=== PATIENT | male | born 1960 | race Caucasian/White ===

== ENCOUNTER 2016-09-22 14:20 | Day surgery (SDC) | payer OTHER ==
[~2016-09-22] VITALS: Ht 182.9 cm; Wt 95.5 kg
[~2016-09-22 14:20] MED LIST: 0.9% Sodium Chloride 1,000 ML ONE; APIX5TAB PO; Atropine 1 mg/10 mL (Code) Syringe ONE; CHOL500011 PO; FLAX100038 PO; FLC50T PO; LANS15TA3 PO; LIP40 PO; LOPE1TAB13 PO; METO25TA99 PO; MULT1CAP33 PO; Methohexital 10 mg/mL 50 mL Inj ONE; ZINC50TA36 PO
[2016-09-22 15:08] LABS: BASOPHILS % (AUTO) 0.9 % (0-3); EOSINOPHILS % (AUTO) 3.7 % (0-5); MONOCYTES % (AUTO) 11.4 % (4-12); Mean Corpuscular Hemoglobin 30.5 pg (27.0-35.0); Mean Corpuscular Volume 88.1 fL (81-100); NEUTROPHILS % (AUTO) 59.7 % (40-74); Platelet Count 223 bil/L (150-400)
[2016-09-22 15:19] VITALS: BP 121/72; PULSE 106; RESP 22; O2SAT 100
[2016-09-22 15:25] LABS: INR 0.99 ratio
[2016-09-22 16:15] VITALS: BP 115/70; PULSE 69; RESP 22; O2SAT 98
--- NOTE | 2016-09-22 16:28 | PROCED ---
[address] [address] PROCEDURE NOTE PATIENT: WILIAN SERRANO : 1960 MR#: [id number] ADMIT: 09/22/2016 JOB ID: [id number] DATE OF SERVICE: 09/22/2016 PREOPERATIVE DIAGNOSIS(ES): Atrial fibrillation. SURGEON: POSTOPERATIVE DIAGNOSIS(ES): Sinus rhythm. PROCEDURE PERFORMED: Direct current cardioversion. CONTROL PANEL BUILDER: Dimas Vaughn MD, electrophysiology attending ANESTHESIA: Sedation 2 mg of Versed and 40 mg of Brevital were utilized for an appropriate level of sedation. INDICATION: The patient is a pleasant 55-year-old man with a structurally normal heart who has had ablation and comes in for recurrence of atrial fibrillation after confirmation of adequate anticoagulation. A complete discussion was had with him regarding risks and benefits. PROCEDURAL DESCRIPTION: After informed consent, the patient was taken to the procedure suite in a fasting state where defibrillator patches were placed in the anterior and posterior positions. After adequate sedation, a 200 joule biphasic synchronized shock was used for conversion to sinus rhythm. He will be allowed to recover and discharged home for close followup. COMPLICATIONS: None. BLOOD LOSS: None. IMPRESSION: Successful direct current conversion. PLAN: 1. Recovery and discharge from the [facility]. 2. Continue current medication regimen. 3. Followup with me in clinic in 3-4 weeks. ATTENDING STATEMENT: Dimas Vaughn MD, electrophysiology attending, was present for and supervised/performed all aspects of this procedure.
--- NOTE | 2016-09-22 16:35 | NUR ---
[facility] ADMIT/DISCHARGE 55 YR OLD MALE ADMITTED TO [facility] FOR CV TODAY AT 1430. AFIB CONFIRMED ON MONITOR. IV STARTED, LABS SENT, AND CONSENT IS SIGNED. MED REC COMPLETED. DR MORRISON, RT, AND, RN IN ATTENDANCE. PT WAS GIVEN VERSED 2MG IV, BREVITAL 40MG IV, AND WAS CONVERTED TO SR USING 200J. PT REMAINED STABLE POST SEDATION. POST CV EKG WAS OBTAINED. DISCHARGE INSTRUCTIONS, INCLUDING POST SEDATION AND MEDICATIONS, WERE REVIEWED WITH PT AND AND THEY VERBALIZED UNDERSTANDING. HE HAS F/U APPT WITH DR MORRISON ON 10/16/16. NO CHANGES TO MEDICATIONS. PT WAS DISCHARGED AT 1625 IN STABLE CONDITION WITH . Addendum: 09/22/16 at 1642 by ABDIRAHMAN MENA RN SEE PAPER FLOW FOR DETAILS OF PROCEDURE
[2016-10-20] MEDS ORDERED: FLEC100T2 PO (18:11)
[2017-01-15] MEDS ORDERED: FLAX100038 PO (16:42)
[2017-01-15] MEDS ORDERED: CHOL500011 PO (16:42)
== END 2016-09-22 23:59 | disposition home or self-care (01) ==
LOC: SOUO 14:20 → EDSTATUS 14:20 → SOUO 23:59
PROVIDERS: ATTEND Internal Medicine Cardiovascular Disease
DX: I48.0 Paroxysmal atrial fibrillation (principal); I10 Essential (primary) hypertension; E78.5 Hyperlipidemia, unspecified; K21.9 Gastro-esophageal reflux disease without esophagitis; Z79.01 Long term (current) use of anticoagulants; Z79.899 Other long term (current) drug therapy; Z79.82 Long term (current) use of aspirin
CPT/HCPCS: 36415; 80048; 85025; 85610; 92960; 93005; J2250; J7030

== ENCOUNTER 2016-10-23 00:45 | Day surgery (SDC) | payer OTHER ==
[~2016-10-23] VITALS: Ht 182.9 cm; Wt 94.5 kg
[~2016-10-23 00:45] MED LIST changes: -0.9% Sodium Chloride 1,000 ML ONE; -Atropine 1 mg/10 mL (Code) Syringe ONE; -FLC50T PO; +FLEC100T2 PO; -LOPE1TAB13 PO; -Methohexital 10 mg/mL 50 mL Inj ONE
[2016-10-23] MEDS ORDERED: 0.9% Sodium Chloride 250 ML ONE (15:21)
[2016-10-23] MEDS ORDERED: Methohexital 10 mg/mL 50 mL Inj ONE (15:22)
[2016-10-23] MEDS ORDERED: Atropine 1 mg/10 mL (Code) Syringe ONE (15:24)
[2016-10-23 15:44] VITALS: BP 139/85; PULSE 93; RESP 15; O2SAT 95
[2016-10-23 15:56] LABS: BASOPHILS % (AUTO) 0 % (0-3); EOSINOPHILS % (AUTO) 4 % (0-5); MONOCYTES % (AUTO) 11 % (4-12); Mean Corpuscular Volume 87 fL (81-100); NEUTROPHILS % (AUTO) 60 % (40-74); Platelet Count 209 bil/L (150-400)
--- NOTE | 2016-10-23 16:47 | NUR ---
Assisted with cardioversion no respiratory issues.
--- NOTE | 2016-10-23 17:25 | NUR ---
[facility] CARDIOVERSION 55 YR OLD MALE ADMITTED TO [facility] FOR CARDIOVERSION TODAY AT 1500. PT IS ACCOMPANIED BY .IV STARTED, LABS SENT, AND MEDICATIONS REVIEWED. CONSENT IS SIGNED AND CONFIRMED. SEE PROCEDURAL FLOW SHEET FOR DETAILS OF PROCEDURE. PT WAS GIVEN VERSED 2MG IV AND BREVITAL 70MG IV FOR SEDATION. HE WAS CONVERTED TO SR USING 200J WITH DR MORRISON AND RT IN ATTENDANCE. POST SEDATION PT REMAINED IN SR AND EKG WAS OBTAINED. PT RECOVERED FROM SEDATION AND DISCHARGE INSTRUCTIONS INCLUDING F/U, MEDICATIONS, AND POST SEDATION WERE REVIEWED WITH PT AND VERBALIZING UNDERSTANDING. HE WAS DISCHARGED IN STABLE CONDITION AT 1705 WITH .
--- NOTE | 2016-10-24 01:55 | PROCED ---
[address] [address] PROCEDURE NOTE PATIENT: WILIAN SERRANO : 1960 MR#: [id number] ADMIT: 10/23/2016 JOB ID: [id number] DATE OF SERVICE: 10/23/2016 PREOPERATIVE DIAGNOSIS(ES): Atrial fibrillation. POSTOPERATIVE DIAGNOSIS(ES): Sinus rhythm. PROCEDURE PERFORMED: SURGEON: Dimas Vaughn MD SEDATION: 2 mg of Versed and a total of 70 mg of Brevital were utilized for appropriate level of sedation. INDICATION: The patient is a pleasant, 55-year-old man, status post multiple ablations and cardioversion, who comes in for symptomatic atrial fibrillation, having adequate anticoagulation. After discussion of risks and benefits of cardioversion, he opted to proceed. PROCEDURAL DESCRIPTION: After informed signed consent, the patient was taken to the procedure suite in a fasting state where defibrillator patches were placed in the anterior and posterior positions. After adequate sedation, a 200 joule biphasic synchronized shock was used to convert him to sinus rhythm. He will be allowed to recover and discharged home for close followup. COMPLICATIONS: None. ESTIMATED BLOOD LOSS: None. IMPRESSION: Successful direct current cardioversion. PLAN: 1. Continue current medication regimen. 2. Follow up with me or Seferino Padgett in the clinic in 3-4 weeks. 3. With the next recurrence of atrial fibrillation, we will switch gears with antiarrhythmics prior to another cardioversion. ATTENDING STATEMENT: Dimas Vaughn MD, electrophysiology attending, was present for and supervised, performed all aspects of this procedure.
[2017-01-15] MEDS ORDERED: FLAX100038 PO (16:42)
[2017-01-15] MEDS ORDERED: CHOL500011 PO (16:42)
== END 2016-10-23 23:59 | disposition home or self-care (01) ==
LOC: SOUO 00:45
PROVIDERS: ATTEND Internal Medicine Cardiovascular Disease
DX: I48.0 Paroxysmal atrial fibrillation (principal); Z79.01 Long term (current) use of anticoagulants; Z79.899 Other long term (current) drug therapy; I10 Essential (primary) hypertension; E78.5 Hyperlipidemia, unspecified
CPT/HCPCS: 80048; 85025; 92960; 93005; 94799; 99151; J2250; J7050

== ENCOUNTER 2017-01-16 06:52 | Day surgery (SDC) | payer OTHER ==
[~2017-01-16] VITALS: Ht 182.9 cm; Wt 100.5 kg
[2017-01-16 07:19] VITALS: BP 101/78; PULSE 90; RESP 18; O2SAT 97
[2017-01-16 07:19] LABS: BASOPHILS % (AUTO) 0.5 % (0-3); MONOCYTES % (AUTO) 10.8 % (4-12); Mean Corpuscular Volume 88.4 fL (81-100); NEUTROPHILS % (AUTO) 58.9 % (40-74); Platelet Count 187 bil/L (150-400)
[2017-01-16] MEDS ORDERED: Methohexital 10 mg/mL 50 mL Inj ONE (07:30)
[2017-01-16] MEDS ORDERED: Atropine 1 mg/10 mL (Code) Syringe ONE (07:31)
[2017-01-16] MEDS ORDERED: Flumazenil 0.1 mg/mL 5 mL Inj IV ONE (07:31)
[2017-01-16 08:45] VITALS: BP 116/73; PULSE 66; RESP 13; O2SAT 97
[2017-01-16 08:50] VITALS: BP 105/74; PULSE 65; RESP 14; O2SAT 97
[2017-01-16 09:00] VITALS: BP 98/71; PULSE 62; RESP 15; O2SAT 97
[2017-01-16 09:10] VITALS: BP 98/73; PULSE 63; RESP 15; O2SAT 98
--- NOTE | 2017-01-16 09:10 | PROCED ---
[address] [address] PROCEDURE NOTE PATIENT: WILIAN SERRANO : 1960 MR#: [id number] ADMIT: 01/16/2017 JOB ID: [id number] DATE OF SERVICE: 01/16/2017 PREOPERATIVE DIAGNOSIS(ES): Atrial fibrillation. POSTOPERATIVE DIAGNOSIS(ES): Sinus rhythm. SURGEON: Dimas Vaughn MD PROCEDURE PERFORMED: Direct current cardioversion. ANESTHESIA: Versed 2 mg and 70 mg of Brevital were utilized for appropriate level of sedation. INDICATION: The patient is a 56-year-old man with previous atrial fibrillation ablation who comes in for symptomatic atrial fibrillation and after confirmation of adequate anticoagulation and a discussion of risks and benefits of a direct current cardioversion. PROCEDURAL DESCRIPTION: Following informed signed consent, the patient was taken to the procedure suite in a fasting state where defibrillator patches were placed in the anterior and posterior positions. After adequate sedation, a 200 joule biphasic synchronized shock was used to convert him to a sinus rhythm. He will be allowed to recover and discharged home for later followup. COMPLICATIONS: None. ESTIMATED BLOOD LOSS: None. IMPRESSION: Successful direct current cardioversion. PLAN: 1. Recovery and discharge from the [facility]. 2. Increase flecainide to 150 mg twice daily. Continue beta blockade and anticoagulation. 3. EKG in 1 week. 4. Follow up with Seferino Padgett PA-C, in 4 weeks. 5. With recurrence of atrial fibrillation we will proceed with sotalol loading. ATTENDING STATEMENT: Dimas Vaughn MD, electrophysiology attending, was present for and performed all aspects of this procedure.
--- NOTE | 2017-01-16 09:19 | NUR ---
discharge instructions reviewed with patient and spouse. He is discharged ambulatory.
--- NOTE | 2017-01-16 10:21 | NUR ---
0830- Called to pt. room for cardioversion. Pt. tolerated procedure well. Responding appropriately after procedure. EKG obtained.
== END 2017-01-16 23:59 | disposition home or self-care (01) ==
LOC: EDSTATUS 06:52 → SOUO 06:52
PROVIDERS: ATTEND Internal Medicine Cardiovascular Disease
DX: I48.0 Paroxysmal atrial fibrillation (principal); Z79.01 Long term (current) use of anticoagulants; Z98.890 Other specified postprocedural states; I10 Essential (primary) hypertension; K21.9 Gastro-esophageal reflux disease without esophagitis; E78.5 Hyperlipidemia, unspecified; Z85.038 Personal history of other malignant neoplasm of large intestine; Z79.899 Other long term (current) drug therapy
CPT/HCPCS: 36415; 80048; 85025; 85610; 92960; 93005; 94799; 99152; J2250

== ENCOUNTER → 2017-02-22 | Day surgery (SDC) | payer OTHER ==
--- NOTE | 2017-02-19 15:39 | PCM.ANEPRE ---
Anesthesia Pre-Op Review Reason for Review: Recent Cardioversion Additional Comments 56 yo M scheduled for left ESWL. Cardioversion 1 month ago for A.Fib. Presumed to be in NSR maintained on flecanide. Referred for JOSE sleep study, not yet completed. Recommend JOSE precautions. DOS EKG to evaluate present rhythm. Chart Reviewed by: Jesus Marie MD, MD Feb 19, 2017 15:39
[2017-02-22] VITALS (8 sets, daily range): BP systolic 104–127; BP diastolic 53–87; PULSE 52–66; RESP 12–16; O2SAT 98–100
[~2017-02-22] VITALS: Ht 182.9 cm; Wt 96.2 kg
[~2017-02-22] MED LIST changes: +Acetaminophen IV 1,000 MG in IV Premix 1 EACH IV ONE; +Atropine 0.4 mg/mL Inj IVPUSH PRN; +Bupivacaine Liposome 1.3% 20 mL Inj INFILTRATE SCH; -CHOL500011 PO; +Dexamethasone 4 mg/mL Inj IVPUSH PRN; +Dexamethasone 4 mg/mL Inj ONE; +EPHEDrine Sulfate 50 mg/mL Inj IVPUSH PRN; +Furosemide 10 mg/mL 2 mL Inj IV ONE; +HYDROmorphone 1 mg/mL Inj IVPUSH PRN; +Labetalol 5 mg/mL 4 mL Inj IV PRN; +Lactated Ringer's 1,000 ML IV SCH; +Lactated Ringer's 500 ML IV PRN; +MetoCLOpramide 5 mg/mL 2 mL Inj IVPUSH PRN; +Ondansetron 2 mg/mL 2 mL Inj IVPUSH PRN; +Ondansetron 2 mg/mL 2 mL Inj ONE; +Phenylephrine 10,000 mCg/mL Inj IVPUSH PRN; +TAMS0.4C98 PO; +fentaNYL-PF 50 mCg/mL 2 mL Inj IVPUSH PRN; +fentaNYL-PF 50 mCg/mL 2 mL Inj ONE; +tamsulosin
--- NOTE | 2017-02-22 06:42 | PCM.HPANE ---
Patient Data Surgeon Admitting Provider: Attending Provider:Julieta Wheeler MD Primary Care Physician:Adarsh Other Provider:Johnnie Smith Anesthesia Reason for Visit Left Kidney Stone Ht/WT & BMI Height (Feet): 6 Height (Inches): 0 Weight (Kilograms): 99.3 Body Mass Index 29.00 Allergies Coded Allergies: Penicillins (Verified Allergy, Severe, RASH, 10/23/16) ezetimibe (Verified Allergy, Severe, Rash, 10/23/16) SWELLING OF FACE simvastatin (Verified Allergy, Severe, Rash, 10/23/16) SWELLING OF FACE rosuvastatin calcium (Verified Adverse Reaction, Severe, ITCHING, 10/23/16) Uncoded Allergies: VYTORIN (Allergy, Intermediate, PUFFINESS, RASH, 03/20/13) Past Anesthesia History Anesthesia History: Denies:: Abnormal Airway, Anesthesia Reactions, Difficult Intubation, Fam Anesthesia Reaction, Fam Malignant Hypertherm, Malignant Hyperthermia Diabetes History Hx Diabetes?: No MRSA MRSA: No Medications Blood Thinner: Aspirin Last Dose Blood Thinner: Feb 17, 2017 Home Meds Incl Beta Eduin: Yes (Metoprolol) Reported Medications Tamsulosin (Flomax)0.4 Mg Capsule0.4 Mg PO DAILY Ref 0 02/19/17 [tamsulosin] No Conflict Check 02/19/17 Flaxseed Oil (Tad-3 Flaxseed Oil)1,000 Mg Capsule1,000 Mg PO DAILY 01/15/17 Flecainide Acetate 100 Mg [id number] Mg PO BID 10/20/16 Zinc 50 Mg Mmurty93 Mg PO DAILY 07/04/16 Lansoprazole ODT (Prevacid ODT)15 Mg Umsxqx44 Mg PO daily/prn Ref 0 07/04/16 Multivitamin (Multivitamins)1 Each Capsule1 Each PO DAILY 07/04/16 Metoprolol Succinate ER 25 Mg Tab.er.24h12.5 Mg PO BID Ref 0 07/04/16 Atorvastatin (Lipitor)40 Mg Idfhex31 Mg PO DAILY Ref 0 07/04/16 Apixaban (Eliquis)5 Mg Tablet5 Mg PO BID 07/04/16 History History of ENT Problems?: Yes HEENT History: Denies:: Abnormal Airway Cataracts Difficult Intubation Dysphagia Glaucoma Hearing Problem Sinus Problem TMJ Denture Type: None Retainer/Senior Unix Administrator Teeth Condition: Within Normal Limits Hx of Heart Problems?: Yes Cardiovascular History: Positive for:: Chest Pain (related to A fib) Irregular Heartbeat (A fib) Denies:: AICD Abdominal Aortic Aneurism Atrial Fibrillation Cardiac Surgery Congestive Heart Failure Coronary Artery Disease Edema Heart Murmur Hypertension Pacemaker Peripheral Vascular Rheumatic Fever Thrombophlebitis Valvular Heart Disease Other Cardiac History: A fib cardioversion december 2016 Hx of Respiratory Problem?: No Respiratory History: Positive for:: Asthma (states told he had it as child) Denies:: COPD Chest Surgery Dyspnea Emphysema Hemoptysis Pneumonia Tuberculosis Use of C-PAP Machine Other Resp Pertinent History: borderline awaiting further testing Hx Neurologic Problems?: No Neurological History: Denies:: Alzheimer's Disease CVA Dementia Dizziness Headaches Parkinson's Disease Seizures Hx of GI Problems?: No Hx of Problems?: Yes Genitourinary History: Positive for:: Kidney Stones (reason for surgery) Denies:: HX of Hemodialysis Urinary Tract Infection HX of Peritoneal Dialysis: No Male Hx: Denies:: Prostate Problems Scrotal Mass Testicular Surgery Skin History: Denies:: History Skin Disorders? Pressure Ulcers Hx Musculoskeletal Problems?: No Musculoskeletal History: Positive for:: Musculoskeletal Trauma (S/P LT SHOULDER RPR) Denies:: Back Injury Joint Replacement Hx of Psycho/Social Problems?: No Psycho Social History: Positive for:: Anxiety (regarding today's procedure) Denies:: Bipolar Disorder Hx Depression Suicide Attempt Hx Surgeries?: Yes (Colectomy) Hx Any Other Health Problems?: Yes Other History: Positive for:: Cancer (colon ca with resection 2012) Hospitalization (Jun, secondary to oblation for A fib) Denies:: Endocrine Disease Thyroid Disease History Blood Transfusions: Positive for:: Accept Blood Products? Denies:: Blood Transfuse Reaction Blood Transfusions Hx Diabetes: No Hx Alcohol Use: YesAlcoholic Drinks Per Day: 2 glasses a Red wine 4-5 times a weekHx Substance Use: Yes (Marijuana etible now and then) Smoking Status: Never Smoker Have You Smoked inLast 12 mo: No Stop/Bang S-Snoring: Do You Snore Loudly: Yes T-Tired: feel tired, fatigued: No O-Obsered: Observed not breath: No P-Blood Pressure: treated: No B- Body Mass Index > 35 kg/m2: No A- Age over 50: Yes N- Neck Large Circumference: Yes G- Gender Male: Yes JOSE Total Score: 4 JOSE Risk Assessment: High Risk, =/>3 Yes JOSE Category 4 OutPt Procedure: Yes Risk Assessment Category Category 1A: Patient has history of documented sleep apnea, and HAS NOT received any narcotic, sedative or anesthesia administration during this stay. Category 1B: Patient has history of documented sleep apnea, and HAS received any narcotic , sedative or anesthesia administration during this stay Category 2: Patient has SUSPECTED Obstructive Sleep Apnea, and HAS received any narcotic , sedative or anesthesia administration during this stay. Category 3: Patient has SUSPECTED Obstructive Sleep Apnea and HAS NOT received narcotic, sedative or anesthesia administration during this stay. Category 4: Outpatient in Procedural Areas with known sleep apnea or who screen positive for High Risk via the STOP/BANG questionnaire. Exam Exam General Appearance: Alert, Oriented X3, Cooperative, No Acute Distress HEENT/AIRWAY: MP 2 Lungs: Clear to Auscultation, Normal Air Movement Heart: Exam Unremarkable, Regular Rate/Rhythm, No Murmurs/Rubs/Gallops Plan Impression Patient chart reviewed, patient interviewed and anesthestic plan with risks, benefits, and alternatives discussed, and informed consent obtained. NPO per Anesth. Guidelines: Yes ASA Physical Status: ASA3 Severe Disease Anesthetic Plan: GA Bene/Risks/Altern/Consents: Yes HP Complete Prior to Induction: Yes Other hx afib ablation, 2 cardioversons since. colectomy poss leakage. Mariama Solis MD Feb 22, 2017 06:42
[2017-02-22] MEDS: Lactated Ringer's 1,000 ML IV SCH ×2 (09:51→12:33)
--- NOTE | 2017-02-22 14:14 | PCM.ANEP1 ---
Post Anesthesia PACU Phase 1 Assessment Vital Signs Vital Signs Date Time Temp Pulse Resp B/P Pulse Ox O2 Delivery O2 Flow Rate FiO2 02/22/17 14:05 36.6 56 13 108/65 99 Room Air 02/22/17 14:00 36.5 52 12 113/62 100 Room Air 02/22/17 13:50 55 12 104/53 100 Room Air 02/22/17 13:45 36.5 60 13 115/61 100 Simple Mask 7 02/22/17 13:40 58 13 124/70 100 Simple Mask 7 02/22/17 13:35 36.2 125/74 02/22/17 10:09 36.2 58 16 127/79 98 Room Air Anesthetic Administered: GA Level of Alertness: Awake, talking VALENCIA's with Equal Strength: Yes Pain: No Nausea or Vomiting: No CV Function & Hydration Stable: Yes Airway Device: Oxygen Delivery: Simple Mask Lungs: Clear to Auscultation, Normal Air Movement PACU Phase 2 Assessment Patient Instructions Provided: N/A Mariama Solis MD Feb 22, 2017 14:14
--- NOTE | 2017-02-22 16:28 | OP ---
[address] [address] OPERATIVE REPORT PATIENT: WILIAN SERRANO : 1960 MR#: [id number] ADMIT: 02/22/2017 JOB ID: [id number] DATE OF SURGERY: 02/22/2017 SURGEON: Julieta Wheeler MD PREOPERATIVE DIAGNOSIS(ES): 1. Multiple left renal calculi. 2. History of recurrent left renal colic and recent passage of a small left ureteral stone. POSTOPERATIVE DIAGNOSIS(ES): 1. Multiple left renal calculi. 2. History of recurrent left renal colic and recent passage of a small left ureteral stone. OPERATION PERFORMED: Left extracorporeal shock wave lithotripsy (maximal power of 5.0 x2500 shocks). ANESTHESIOLOGIST: Mariama Solis MD ANESTHESIA: General. DESCRIPTION OF PROCEDURE: The patient was positioned supine on the lithotripsy gurney and the above-described stone was localized in the X, Y and Z plane. Lithotripsy was then commenced at minimal power level and gradually increased to maximum power level. The stone and its fragments were relocalized numerous times throughout the case using C-arm radiography. The procedure was then terminated. The patient was awakened, transferred to the gurney and transferred to the recovery area awake in stable condition. The patient tolerated the procedure well.
--- NOTE | 2017-02-22 18:49 | DRSVH ---
PROCEDURE: X-RAY KUB ([id number]) INDICATIONS: LEFT KIDNEY STONE TECHNIQUE: One view of the abdomen acquired. COMPARISON: [facility], CT, CT CHEST ABD PELVIS W CON, 01/08/2017, 9:52. [facility], CR, XR KUB, 01/23/2017, 13:21. FINDINGS: Surgical changes and devices: None. Bowel: Bowel gas pattern is normal. Soft tissues: Several small calcifications again seen projected over the lower pole of the left kidne y largest measuring roughly 4 mm. Bones: No suspicious bony lesions. IMPRESSION: Several small left inferior pole calcifications similar to prior exam. Dictated by: Eloy NETTLES Interpreted: Eloisa Zhang MD on 02/22/2017 at 11:16 Approved by: Eloisa Zhang M.D. on 02/22/2017 at 18:48
== END | disposition home or self-care (01) ==
LOC: SAS 09:27
PROVIDERS: ATTEND Specialist
DX: N20.0 Calculus of kidney (principal); I10 Essential (primary) hypertension; I48.0 Paroxysmal atrial fibrillation; E78.5 Hyperlipidemia, unspecified; F12.90 Cannabis use, unspecified, uncomplicated; Z85.038 Personal history of other malignant neoplasm of large intestine; Z85.89 Personal history of malignant neoplasm of other organs and systems
CPT/HCPCS: 50590; 74000; 93005; J1100; J1940; J2250; J2405; J3010; J7120

== ENCOUNTER 2017-04-09 08:04 | Inpatient (IN) | payer OTHER ==
[~2017-04-09] VITALS: Ht 182.9 cm; Wt 97.4 kg
[2017-04-09] VITALS (7 sets, daily range): BP systolic 114–138; BP diastolic 69–88; PULSE 49–71; RESP 18–22; O2SAT 95–99
[~2017-04-09 08:04] MED LIST changes: -Acetaminophen IV 1,000 MG in IV Premix 1 EACH IV ONE; -Atropine 0.4 mg/mL Inj IVPUSH PRN; -Bupivacaine Liposome 1.3% 20 mL Inj INFILTRATE SCH; -Dexamethasone 4 mg/mL Inj IVPUSH PRN; -Dexamethasone 4 mg/mL Inj ONE; -EPHEDrine Sulfate 50 mg/mL Inj IVPUSH PRN; -Furosemide 10 mg/mL 2 mL Inj IV ONE; -HYDROmorphone 1 mg/mL Inj IVPUSH PRN; -Labetalol 5 mg/mL 4 mL Inj IV PRN; -Lactated Ringer's 1,000 ML IV SCH; -Lactated Ringer's 500 ML IV PRN; -MetoCLOpramide 5 mg/mL 2 mL Inj IVPUSH PRN; -Ondansetron 2 mg/mL 2 mL Inj IVPUSH PRN; -Ondansetron 2 mg/mL 2 mL Inj ONE; -Phenylephrine 10,000 mCg/mL Inj IVPUSH PRN; -fentaNYL-PF 50 mCg/mL 2 mL Inj IVPUSH PRN; -fentaNYL-PF 50 mCg/mL 2 mL Inj ONE
[2017-04-09] MEDS ORDERED: Polyethylene Glycol (PEG) 17 Gm Powder PO PRN (08:10)
[2017-04-09] MEDS ORDERED: Alum-Mag Hydrox-Simeth 30 mL Suspension PO PRN (08:10)
[2017-04-09 09:22] LABS: Magnesium 2.2 mg/dL (1.6-2.6)
[2017-04-09] MEDS ORDERED: LOPE-147 PO (11:19)
[2017-04-09] MEDS: Pantoprazole 20 mg ER24 Tablet PO SCH (12:53)
--- NOTE | 2017-04-09 18:35 | NUR ---
[facility] Cardiac:Pt denies CP, Tele: upper and mid 50s most of shift, down to mid 40s, Dr Johana lu, AM Metoprolol DC'd. OK to given 2029 sotalol. Resp: Pt denies SOB, SPO2 mid 90s on RA. GI/: denies n/v/d, has 2-4 BMs per day following complete colectomy in 2012, takes imodium BID scheduled. Neuro: A&Ox3, VALENCIA, independent in room.
[2017-04-10] VITALS (8 sets, daily range): BP systolic 105–118; BP diastolic 70–77; PULSE 48–62; RESP 16–18; O2SAT 95–98
--- NOTE | 2017-04-10 05:01 | NUR ---
Cardiac: Tele Sbrady 50s. Dr. Oro contacted prior to HS Sotalol dose and made aware of tele. MD states its okay to administer Sotalol. EKG post Sotalol dose QTC WNL. Tele Sbrady 40-50s when sleeping. pt asymptomatic- denies any light headed or dizziness. Care on going.
--- NOTE | 2017-04-10 08:29 | NUR ---
Social Work: Screen D/A: Per EMR review, pt is a 56 year old male admitted for sotalol loading. The pt is [employer] Out of [employer] insurance. PCP is not listed. NOK is Antonio Zafar, . Advanced directives have not been completed. Copies provided to the patient. Readmit score not entered at this time. Pt lives on [address] with his . Pt is I with ADLs at baseline, is ambulating I in his room and works as a sales-person. No social work needs or barriers for discharge identified. Cardiology is leading and following pt's care. P: Anticipate pt will discharge home with his once medically stable; TROUBLE LOCATER to continue to follow to assess for unmet discharge needs. SHERLYN Contreras
[2017-04-10] MEDS ORDERED: MeTOProlol XL 25 mg ER24 Tablet PO SCH (08:30)
[2017-04-10] MEDS: Pantoprazole 20 mg ER24 Tablet PO SCH (09:28)
--- NOTE | 2017-04-10 11:56 | HP ---
[address] [address] HISTORY AND PHYSICAL PATIENT: WILIAN SERRANO : 1960 MR#: [id number] ADMIT: 04/09/2017 JOB ID: [id number] DATE: 04/09/2017 REASON FOR ADMISSION: To change antiarrhythmic therapy for atrial fibrillation from flecainide to sotalol. CHIEF COMPLAINT: Episodic palpitations and weakness. HISTORY OF PRESENT ILLNESS: The patient is a pleasant 56-year-old man with a structurally normal heart who has been quite troubled with paroxysmal and persistent atrial fibrillation for a number of years now. He has had previous ablation procedures and been cardioverted many times. His flecainide dose had been stepped up and was at 150 mg b.i.d. and he was tolerating it well without side effects. However, he still has paroxysms of atrial fibrillation and most often they are persistent and require cardioversion. PAST MEDICAL HISTORY: 1. Paroxysmal atrial fibrillation, sometimes persistent. 2. Hyperlipidemia. 3. History of colon cancer status post resection of the colon. 4. Hypertension. 5. Kidney stones. MEDICATION ALLERGIES/INTOLERANCES: 1. PENICILLINS. 2. SIMVASTATIN. 3. ROSUVASTATIN. 4. ZETIA. REVIEW OF SYSTEMS: Neuro: No dizziness. Respiratory: No dyspnea. Eyes: No visual changes. Skin: No rashes. Constitutional: No recent weight gain or weight loss. Musculoskeletal: No weakness. Endocrine: No polydipsia. : No hematuria. Cardiac: Tachycardia, palpitations from atrial fibrillation but no chest pain. Heme: No bleeding. GI: No blood in stool but he has diarrhea from the colon resection. Psych: Negative anxiety. PHYSICAL EXAMINATION: Vital signs: BP 134/79, pulse regular at 50, respirations 20 per minute. He is afebrile and pulse oximetry 99% on room air. The patient is standing comfortably in no distress. He is not short of breath and has no discomfort. Head is normocephalic. Eyes: With normal pupils and reaction to light. Neck: No JVD. Carotid pulses are equal and no bruits. Chest exam: Breath sounds full and clear in all lopez. Heart is regular and without murmurs. Abdomen is soft and nontender, bowel sounds present. Peripheries are without cyanosis or edema and peripheral pulses are intact. LAB DATA: Serum chemistry is all normal including potassium 4.4, creatinine 0.79 and magnesium 2.2. ECG shows sinus bradycardia at 56. AZ interval 150 msec, QT 430 and QTc 416 msec. There is incomplete right bundle-branch block. ASSESSMENT: Patient with history of paroxysmal and persistent atrial fibrillation with previous ablation procedures and multiple cardioversions. Flecainide has been ineffective and so it was stopped one week ago. PLAN: To start sotalol at 80 mg b.i.d. and monitor the QT interval 2 hours after each dose. He will also be on continuous lunchroom monitor looking for arrhythmias. If the QT interval is stable, then we may increase the sotalol dose to 120 mg b.i.d.
[2017-04-10] MEDS ORDERED: METO25TA3 PO (12:48)
[2017-04-10] MEDS ORDERED: FLEC150T PO (12:48)
--- NOTE | 2017-04-10 13:09 | PROG NOTE ---
[address] [address] PROGRESS NOTE PATIENT: WILIAN SERRANO : 1960 MR#: [id number] ADMIT: 04/09/2017 JOB ID: [id number] DATE: 04/10/2017 CHIEF COMPLAINT: No complaints at present. SUBJECTIVE: The patient is a pleasant 56-year-old man who has been plagued with paroxysmal atrial fibrillation for quite a few years despite several prior ablation procedures and multiple cardioversions. We had him stop flecainide a week ago and started sotalol yesterday for antiarrhythmic therapy of atrial fibrillation. At present he feels he is tolerating the medication very well and has no perceptible side effects. He is not nauseated, dizzy or dyspneic. OBJECTIVE: Vital signs today are pulse 50 BPM, BP 118/17, pulse oximetry 97% on room air. His EKG after the third dose of sotalol 80 mg shows sinus rhythm at 70 BPM with a QTc of 424 msec. His baseline QTc was 422 msec. He is alert and oriented, and ambulatory without difficulty. His physical examination is unchanged from yesterday. ASSESSMENT: The patient is starting sotalol without difficulty. He has so for maintained sinus rhythm and having no side effects from the medication. Metoprolol was stopped to allow the sinus rate to increase. PLAN: Continue same dose of sotalol for two more doses with 12 lead ECGs recorded after each dose to monitor for the QT interval and remain on telemetry monitoring to look for arrhythmias both atrial and ventricular.
--- NOTE | 2017-04-10 17:13 | NUR ---
Sotalol/Activity Cardiac: Pt denies CP. Tele: SR itz 48-55. Sotalol continues, Dr Vaughn aware of itz HR. Resp: Pt denies SOB, SPO2 mid 90s on RA. GI/: denies n/v/d, has 2-4 BMs per day following complete colectomy in 2012, takes imodium BID scheduled. Neuro: A&Ox3, VALENCIA, independent in room, walking in halls ad nel.
[2017-04-11 03:28] VITALS: BP 99/61; PULSE 48; RESP 16; O2SAT 97
--- NOTE | 2017-04-11 04:46 | NUR ---
Sotalol HS Sotalol dose given at approx. 2044 with follow-up EKG ordered for 2244. Latest QTc per EKG is 450. Pt independent in room and halls, demonstrates frequent ambulation. Pt educated to necessity for heart rhythm monitoring during Sotalol loading when he raised questions of whether he "needed to still be here". VSS, tele SB 40s-50s.
[2017-04-11 08:00] VITALS: BP 114/76; PULSE 52; RESP 18; O2SAT 98
[2017-04-11] MEDS: Pantoprazole 20 mg ER24 Tablet PO SCH (08:27)
[2017-04-11 10:24] VITALS: PULSE 58
--- NOTE | 2017-04-11 11:07 | PCM.DIMED ---
Discharge Instructions Date of Service Apr 11, 2017 Dates of Hospitalization Apr 09, 2017 at 08:04 Diet Discharge Diet: No restrictions Activity Discharge Activity: No restrictions Patient Instructions Mid-level Provider (F9): Seferino Padgett PA-C Follow-up with Mid-level in: 5 weeks Seferino Padgett PA-C Apr 11, 2017 11:07
[2017-04-11] MEDS ORDERED: BET80 PO (11:09)
--- NOTE | 2017-04-11 11:40 | NUR ---
Discharge: VSS, tele SB 50s, RA O2 sats 98%. Up ad nel in room and rios, no gait instability noted. Sotalol dose given, ECG obtained 2 hrs post dose, Cardiology reviewed. Pt given care notes r/t Sotalol. IV d/c'd intact. D/c'd home with all personal belongings, providing transport. Pt to follow up with Cardiology in 5 weeks.
--- NOTE | 2017-04-11 11:43 | DIS ---
[address] [address] DISCHARGE SUMMARY PATIENT: WILIAN SERRANO : 1960 MR#: [id number] ADMIT: 04/09/2017 JOB ID: [id number] DIS: REASON FOR ADMISSION: To switch antiarrhythmic therapy for atrial fibrillation to sotalol. CHIEF COMPLAINT: Palpitations from atrial fibrillation. BRIEF HISTORY: The patient is a pleasant 56-year-old man with a structurally normal heart who has been experiencing paroxysmal atrial fibrillation for quite a few years now. He has had previous ablation procedures and numerous cardioversions. He has been treated with flecainide at the maximum dosage of 150 mg b.i.d. He still has breakthrough arrhythmia. Hospitalization was arranged to switch him over to sotalol. COURSE IN HOSPITAL: The patient was admitted to the second floor [facility] for telemetry monitoring and to start the medication. After baseline 12-lead ECG and lab work was done, he received sotalol 80 mg q.12 h. with 12-lead ECGs recorded two hours after each dose. His baseline ECG showed sinus bradycardia at 56 BPM with a QTc of 416 msec. After the fifth dose of sotalol the rhythm was sinus bradycardia at 51 BPM with a QTc of 431 msec. He remained in sinus rhythm and there was no ventricular tachycardia. Metoprolol was stopped so that he would not have significant bradycardia. The patient felt well on the new medication and had no perception of side effects. DISPOSITION: The patient was discharged home in good condition with a followup appointment at the [facility] Cardiology office in one month for EKG. He has no activity or new diet restrictions. He felt well for discharge home. MEDICATIONS: 1. Sotalol 80 mg b.i.d. 2. Eliquis 5 mg b.i.d. 3. Atorvastatin 40 mg daily. 4. Flaxseed oil 1 g daily. 5. Prevacid 15 mg daily. 6. Loperamide 2 mg b.i.d. 7. Multivitamin one daily. 8. Zinc 50 mg daily. Flecainide was stopped one week ago. Metoprolol was stopped also. FINAL DIAGNOSES: 1. Paroxysmal atrial fibrillation. 2. Hyperlipidemia. 3. Hypertension. 4. History of colon cancer with colon resection. 5. Diarrhea.
== END 2017-04-11 11:36 | disposition home or self-care (01) | DRG 310 ==
LOC: PCC 08:04 → UNDOADMIN 08:04
PROVIDERS: ADMIT Internal Medicine Cardiovascular Disease; ATTEND Internal Medicine Cardiovascular Disease
PROC: 3E0D7RZ Introduction of Antiarrhythmic into Mouth and Pharynx, Via Natural or Artificial Opening (ICD-10-PCS; principal; 2017-04-09)
DX: I48.0 Paroxysmal atrial fibrillation (principal); E78.5 Hyperlipidemia, unspecified; R19.7 Diarrhea, unspecified; I10 Essential (primary) hypertension; Z88.0 Allergy status to penicillin